=== PATIENT | male | born 1945 | race Caucasian/White ===

== ENCOUNTER 2018-11-08 09:13 | Day surgery (SDC) | payer MEDICARE, OTHER ==
--- NOTE | 2018-11-08 15:20 | Operative Note ---
OPERATION: COLONOSCOPY with cold forceps and cold snare polypectomies. PREOPERATIVE DIAGNOSIS: Questionable person history of colon polyps. POSTOPERATIVE DIAGNOSIS: Colon polyps. ESTIMATED BLOOD LOSS: Minimum. SPECIMENS: Descending colon polyp and rectal polyp. COMPLICATIONS: None apparent. PREPARATION QUALITY: Good to excellent. PROCEDURE: After informed consent was obtained from the patient including a discussion of risks of bleeding, infection, perforation, after questions had been asked and answered, the patient was placed in the left lateral decubitus position in the endoscopy suite. Was monitored throughout the course of the procedure. No oxygen was given. He requested no anesthesia. Digital rectal exam was performed which revealed no palpable rectal mass. A well-lubricated [id number] colonoscope was inserted into the rectum and gently advanced to the cecum. Preparation quality was good to excellent. The cecum, cecal bulb, ileocecal valve, and appendiceal orifice were visualized and were unremarkable. Two views of the cecum were performed and were unremarkable. The ascending colon and transverse colon were unrevealing as well. In the descending colon there was a diminutive polyp identified, removed with a cold forceps. Minimal bleeding was noted. The remainder of the descending colon and sigmoid colon were unremarkable. A 4-5 mm sessile polyp was noted in the rectum, removed with a cold snare. Minimal bleeding was noted. The polyp was retrieved. Forward and J-turn views of the rectum and anorectum were otherwise unremarkable. The endoscope was straightened, the rectal ampulla deflated, and the endoscope was removed. RECOMMENDATIONS: The patient should resume his medications and diet. His blood pressure was elevated. We will monitor this in recovery. If it remains elevated, I would like him to follow up sooner rather than later with Dr. Elena. As always, thank you for allowing me to participate in the healthcare of your patients. CC: Donald AGARWAL
== END 2018-11-08 11:20 | disposition home or self-care (01) ==
LOC: HOP 09:13
PROVIDERS: ATTEND Internal Medicine Gastroenterology
DX: Z12.11 Encounter for screening for malignant neoplasm of colon (principal); K63.5 Polyp of colon; D12.8 Benign neoplasm of rectum; E78.00 Pure hypercholesterolemia, unspecified; J45.909 Unspecified asthma, uncomplicated